=== PATIENT | male | born 1945 | race Caucasian/White ===

== ENCOUNTER → 2018-05-02 13:16 | Outpatient (CLI) | payer MEDICARE, SELFPAY ==
--- NOTE | 2018-05-02 13:18 | CT_ITS ---
STUDY: CT ABDOMEN AND PELVIS WITH CONTRAST REASON FOR EXAM: Male, 73 years old. Malignant melanoma RADIATION DOSAGE (If Supplied By Facility): CTDIvol = ( 26 ) mGy, DLP = ( 2439.37 ) mGycm TECHNIQUE: Transaxial images were obtained from the dome of the diaphragm to the symphysis pubis with oral contrast. 100 ml of Isovue 300 contrast was administered. Sagittal and coronal images were reconstructed. # of Images: 469 Individualized dose optimization techniques were used for this CT. COMPARISON: 05/01/2017 FINDINGS: The visualized lung bases are unremarkable. The visualized portions of the heart are within normal limits. Calcified hepatic granulomata. Fatty liver. Normal gallbladder and extrahepatic biliary system. There are multiple benign calcified granulomata of the spleen. Normal pancreas. Normal bilateral adrenal glands. Normal right kidney. 1 mm nonobstructing left renal stone. Normal visualized stomach. Normal small intestine. There are multiple colonic diverticula consistent with diverticulosis. The appendix is visualized and appears normal. Normal abdominal aorta. Normal inferior vena cava. Normal retroperitoneum. Normal urinary bladder. Normal abdominal wall. Normal osseous structures. CT/Abdomen/Pelvis WITH Contrast IMPRESSION: No metastatic lesions are identified. Electronically Signed: Floyd Galeana MD at 4:32 EDT Tel , Service support ,
--- NOTE | 2018-05-02 13:18 | CT_ITS ---
STUDY: CT CHEST WITH CONTRAST REASON FOR EXAM: Male, 73 years old. Malignant melanoma RADIATION DOSAGE (If Supplied By Facility): CTDIvol = ( 26 ) mGy, DLP = ( 2439.37 ) mGycm TECHNIQUE: Transaxial imaging was performed following intravenous administration of 100 ml of Isovue 300 contrast material. # of Images: 927 Individualized dose optimization techniques were used for this CT. COMPARISON: 05/01/2017 FINDINGS: The previously described 3 mm groundglass right lower lobe nodule has resolved. There is no demonstrated pleural abnormality. Normal heart and pericardium. Normal mediastinum. Normal hilar regions. Normal enhanced pulmonary arteries. Normal aorta arch and descending thoracic aorta. Normal osseous structures. There is no demonstrated abnormality of the visualized upper abdomen. CT/Chest WITH Contrast IMPRESSION: No metastatic lesions are identified. The previously described 3 mm groundglass right lower lobe nodule has resolved. Electronically Signed: Floyd Galeana MD at 5:06 EDT Tel , Service support ,
[2018-05-02 13:36] LABS: CREATININE FINGERSTICK 1.1 mg/dL (0.70-1.30); EGFR FINGERSTICK > 60.0000 mL/min (>60)
== END ==
PROVIDERS: Referring Provider Internal Medicine Medical Oncology; Visit Provider Internal Medicine Medical Oncology
DX: Z85.820 Personal history of malignant melanoma of skin (principal)
CPT/HCPCS: 71260; 74177; Q9967

== ENCOUNTER → 2019-05-05 08:01 | Outpatient (CLI) | payer MEDICARE, SELFPAY ==
--- NOTE | 2019-05-05 08:03 | CT_ITS ---
STUDY: CT CHEST WITH CONTRAST REASON FOR EXAM: Male, 74 years old. Melanoma and COPD RADIATION DOSAGE (If Supplied By Facility): CTDIvol = ( 21.95 ) mGy, DLP = ( 2159.33 ) mGycm TECHNIQUE: Transaxial imaging was performed following intravenous administration of IV Isovue 300 100CC. Individualized dose optimization techniques were used for this CT. COMPARISON: CT chest May 03, 2018 FINDINGS: The lungs are normal. There is no demonstrated pleural abnormality. Normal heart and pericardium. Calcific coronary artery disease. Normal mediastinum. Normal hilar regions. Normal enhanced pulmonary arteries. Normal aorta arch and descending thoracic aorta. Normal osseous structures. There is no demonstrated abnormality of the visualized upper abdomen. CT/Chest WITH Contrast IMPRESSION: Normal enhanced CT Chest examination. Electronically Signed: Christopher Santacruz MD at 22:28 EDT , Service support ,
--- NOTE | 2019-05-05 08:03 | CT_ITS ---
STUDY: CT ABDOMEN AND PELVIS WITH CONTRAST REASON FOR EXAM: Male, 74 years old. Melanoma surveillance RADIATION DOSAGE (If Supplied By Facility): DLP = ( 2159.33 ) mGycm TECHNIQUE: Transaxial images were obtained from the dome of the diaphragm to the symphysis pubis with oral contrast. 100CC ml of Isovue 300 contrast was administered. Sagittal and coronal images were reconstructed. Individualized dose optimization techniques were used for this CT. COMPARISON: CT abdomen pelvis May 02, 2018 FINDINGS: The visualized lung bases are clear. The visualized portions of the heart and pericardium are within normal limits. There are no calcified gallstones present. The liver is within normal limits. There are no suspicious hepatic lesions. The spleen is normal in size. The pancreas is within normal limits. The adrenal glands are within normal limits. There is a left renal midpole 2 mm stone. There is no hydronephrosis. There are no focal renal lesions. Normal visualized stomach. There is no bowel obstruction or inflammation. Mild colonic diverticulosis is present. The appendix is not visualized, but there are no findings to suggest acute appendicitis. The aorta is normal in caliber. There is no abdominal or pelvic free air, free fluid, fluid collection or lymphadenopathy. There are no destructive osseous lesions. Mild multilevel endplate compression is present in the lumbar spine. There is a small left inguinal hernia. There is a stable right lower back subcutaneous [address]/Abdomen/Pelvis WITH Contrast IMPRESSION: Stable right lower back subcutaneous 1 cm lesion. Correlation with clinical exam is recommended. No evidence of intra-abdominal or pelvic pathology. Left renal midpole 2 mm nonobstructing stone. Left inguinal fat-containing hernia. Electronically Signed: Yefri Potts, at 20:28 EDT Tel , Service support ,
== END ==
PROVIDERS: Referring Provider Internal Medicine Medical Oncology; Visit Provider Internal Medicine Medical Oncology
DX: Z85.820 Personal history of malignant melanoma of skin (principal)
CPT/HCPCS: 71260; 74177; Q9967

== ENCOUNTER → 2020-05-05 12:35 | Outpatient (CLI) | payer MEDICARE, SELFPAY ==
[2019-05-08 13:17] VITALS: BMI 43.2
--- NOTE | 2020-05-05 12:36 | CT_ITS ---
STUDY: CT CHEST WITH CONTRAST REASON FOR EXAM: Male, 75 years old. MONITORING MELANOMA RADIATION DOSAGE (If Supplied By Facility): CTDIvol = ( 22.82 ) mGy, DLP = ( 2253.52 ) mGycm TECHNIQUE: Transaxial imaging was performed following intravenous administration of IV 100mL Isovue-300. Multiplanar coronal and sagittal images were reformatted. Individualized dose optimization techniques were used for this CT. COMPARISON: Comparison is made with prior examination 05/05/2019. FINDINGS: The lungs are normal. There is no demonstrated pleural abnormality. There are calcifications of the coronary arteries. There are multiple small lymph nodes within the mediastinum, which are normal in size and morphology most compatible with reactive lymph hyperplasia. Normal hilar regions. Normal enhanced pulmonary arteries. Normal aorta arch and descending thoracic aorta. Normal osseous structures. There is no demonstrated abnormality of the visualized upper abdomen. CT/Chest WITH Contrast IMPRESSION: No acute abnormality is seen. Electronically Signed: Nathanael Ash, at 13:52 EDT , Service support ,
--- NOTE | 2020-05-05 12:36 | CT_ITS ---
STUDY: CT ABDOMEN AND PELVIS WITH CONTRAST REASON FOR EXAM: Male, 75 years old. MONITORING MELANOMA RADIATION DOSAGE (If Supplied By Facility): CTDIvol = ( 22.82 ) mGy, DLP = ( 225.52 ) mGycm TECHNIQUE: Transaxial images were obtained from the dome of the diaphragm to the symphysis pubis without oral contrast. IV 100mL Isovue-300 was administered. Sagittal and coronal images were reconstructed. Individualized dose optimization techniques were used for this CT. COMPARISON: Comparison is made with prior examination of 05/05/2019. FINDINGS: Stable minimal increased markings at the right lung base suggests some mild basilar scarring. The visualized portions of the heart are within normal limits. Stable 1 cm rounded soft tissue nodule in the subcutaneous tissue overlying the posterior aspect of the upper abdomen There is decreased attenuation of the liver consistent with steatosis. Normal gallbladder and extrahepatic biliary system. There are multiple benign calcified granulomata of the spleen. There is diffuse atrophy of the pancreas. Normal bilateral adrenal glands. Normal right kidney. Normal left kidney. Normal visualized stomach. Normal small intestine. There are multiple colonic diverticula consistent with diverticulosis. The appendix is visualized and appears normal. There is scattered atherosclerotic calcification of the abdominal aorta, without a demonstrated aneurysm. Normal inferior vena cava. Normal retroperitoneum. Normal urinary bladder. There is a left-sided inguinal hernia containing adipose tissue. Normal osseous structures. CT/Abdomen/Pelvis W IV Cont ONLY IMPRESSION: Stable examination. No acute abnormality is seen. Electronically Signed: Nathanael Ash, at 13:31 EDT , Service support ,
[2020-05-05 12:50] LABS: CREATININE FINGERSTICK 1.1 mg/dL (0.70-1.30)
== END ==
PROVIDERS: PCP Nurse Practitioner Primary Care; Referring Provider Internal Medicine Medical Oncology; Visit Provider Internal Medicine Medical Oncology
DX: Z85.820 Personal history of malignant melanoma of skin (principal)
CPT/HCPCS: 71260; 74177; Q9967

== ENCOUNTER 2020-09-21 11:03 | Outpatient (RCR) | payer MEDICARE, SELFPAY ==
[2019-05-08 13:17] VITALS: BMI 43.2
[2020-09-21] MEDS: COVID-19 VACC, MRNA(PFIZER)/PF 30 MCG/0.3 ML SYRINGE IM (06:54)
[2020-10-12] MEDS: COVID-19 VACC, MRNA(PFIZER)/PF 30 MCG/0.3 ML SYRINGE IM (06:58)
== END 2020-12-21 23:59 ==
LOC: IMMUN 11:03
PROVIDERS: PCP Nurse Practitioner Primary Care; Visit Provider Family Medicine
DX: Z23 Encounter for immunization (principal)
CPT/HCPCS: 0001A; 0002A; 91300

== ENCOUNTER → 2021-05-02 07:43 | Outpatient (CLI) | payer MEDICARE, SELFPAY ==
[2019-05-08 13:17] VITALS: BMI 43.2
--- NOTE | 2021-05-02 07:48 | CT_ITS ---
STUDY: CT CHEST, ABDOMEN T PELVIS WITH CONTRAST REASON FOR EXAM: Male, 76 years old. MONITORING MELANOMA RADIATION DOSAGE (If Supplied By Facility): CTDIvol = ( 23.55 ) mGy, DLP = ( 1936.05 ) mGycm TECHNIQUE: Transaxial imaging was performed following intravenous administration of IV 100mL Isovue-370. Individualized dose optimization techniques were used for this CT. COMPARISON: Comparison is made with prior CT scan thorax dated 05/05/2020. FINDINGS: CHEST Increased linear markings in the posterior medial segment right lower lobe suggestive of bibasilar linear atelectasis and/or scarring. No focal infiltrate is seen or mass lesion seen. There is no demonstrated pleural abnormality. There are calcifications of the coronary arteries. There are multiple small lymph nodes within the mediastinum, which are normal in size and morphology most compatible with reactive lymph hyperplasia. Normal hilar regions. Normal unenhanced pulmonary arteries. Normal aorta arch and descending thoracic aorta. There are multi-level degenerative changes of the thoracic spine. Increased kyphosis. ABDOMEN There is decreased attenuation of the liver consistent with steatosis. Normal gallbladder and extrahepatic biliary system. There are multiple benign calcified granulomata of the spleen. There is diffuse atrophy of the pancreas. Normal bilateral adrenal glands. Normal right kidney. Tiny nonobstructive calculus in the midpole calyx of the left kidney. Normal visualized stomach. Normal small intestine. There are multiple colonic diverticula consistent with diverticulosis. The appendix is visualized and appears normal. There is scattered atherosclerotic calcification of the abdominal aorta, without a demonstrated aneurysm. Normal inferior vena cava. Normal retroperitoneum. Small left inguinal hernia containing fat. The mineralization of the lumbar vertebrae with mild loss of height of the vertebrae. PELVIS Normal urinary bladder. Normal visualized small intestine. There are multiple colonic diverticula of the sigmoid colon consistent with chronic diverticulosis. There is no pelvic fluid. There is no pelvic lymphadenopathy or mass lesion. There is diffuse atherosclerotic calcification of the pelvic arteries. CT/CT Chest, Abd, Pel w/Contrast IMPRESSION: Sigmoid diverticulosis. Fatty infiltration of the liver. Electronically Signed: Nathanael Ash MD at 14:07 EDT , Service support ,
[2021-05-02 08:00] LABS: CREATININE FINGERSTICK 0.8 mg/dL (0.70-1.30); EGFR FINGERSTICK > 60.0000 mL/min (>60)
== END ==
PROVIDERS: PCP Nurse Practitioner Primary Care; Referring Provider Internal Medicine Medical Oncology; Visit Provider Internal Medicine Medical Oncology
DX: C43.9 Malignant melanoma of skin, unspecified (principal); C77.9 Secondary and unspecified malignant neoplasm of lymph node, unspecified; K76.0 Fatty (change of) liver, not elsewhere classified; K57.30 Diverticulosis of large intestine without perforation or abscess without bleeding
CPT/HCPCS: 71260; 74177; Q9967